=== PATIENT | female | born 1945 | race Caucasian/White ===

== ENCOUNTER 2018-09-27 19:59 | Observation (INO) | payer OTHER ==
[2018-09-27 20:52] LABS: Absolute Monocytes 0.6 K/uL (0.1-1.3); Absolute Neutrophil 5.1 K/uL (1.8-8.0); Basophils % 0.7 % (0-1.3); Eosinophils % 1.3 % (0-4.4); Lymphocytes % 25.4 % (15.3-44.8); Monocytes % 7.5 % (3.3-12.3); RBC Red Blood Cell Count 4.01 M/uL (3.86-4.86)
[2018-09-27 21:09] LABS: Protime INR 0.96
[2018-09-27 21:15] LABS: ALT/SGPT 20 U/L (12-78); AST/SGOT 15 U/L (15-37); Albumin 3.5 g/dL (3.4-5.0); Alkaline Phosphatase 96 U/L (45-117); BUN Blood Urea Nitrogen 23 mg/dL (7-18); Bicarbonate 31 mmol/L (21-32); Bilirubin Direct 0.1 mg/dL (0-0.2); Bilirubin Total 0.3 mg/dL (0.2-1.0); Glucose Level 104 mg/dL (74-106); Magnesium 2.2 mg/dL (1.8-2.4); NT PRO-BNP 64 pg/mL (<125); Potassium 3.5 mmol/L (3.5-5.1); Protein, Total 6.7 g/dL (6.4-8.2); Sodium Level 142 mmol/L (136-145); Troponin (Emerg Dept Use Only) < 0.02 ng/mL (0.0-0.045)
--- NOTE | 2018-09-27 21:55 | RAD REPORT ---
EXAM DESCRIPTION: RAD - Chest Single View - 09/27/2018 9:50 pm CLINICAL HISTORY: tingling right arm Chest pain. COMPARISON: CHEST PA AND LAT 2 VIEW dated 10/02/2013; CHEST SINGLE VIEW dated 03/06/2011; CHEST SINGLE VIEW dated 05/28/2010 FINDINGS: Portable technique limits examination quality. The lungs are grossly clear. The heart is normal in size. No displaced fractures. IMPRESSION: No acute intrathoracic process suspected.
--- NOTE | 2018-09-27 21:58 | ER ---
Nurse's Notes [facility] Name: Cynthia Mckenna Age: 73 yrs Sex: Female : 1945 Arrival Date: 09/27/2018 Time: 20:16 Bed 16 Private MD: Diagnosis: Chest pain, unspecified;Hypertensive heart disease Presentation: 09/27 20:20 Presenting complaint: EMS states: Pt complaining of tingling and pain to the left arm, ea pt reports pain was lingering even after an taking aspirin 325mg. Pt denied SOB, stated she felt weak all over. Transition of care: patient was not received from another setting of care. Onset of symptoms was September 27, 2018. Risk Assessment: Do you want to hurt yourself or someone else? Patient reports no desire to harm self or others. Initial Sepsis Screen: Does the patient meet any 2 criteria? No. Patient's initial sepsis screen is negative. Does the patient have a suspected source of infection? No. Patient's initial sepsis screen is negative. Care prior to arrival: IV to left forearm. 20:20 Method Of Arrival: EMS: [facility] ea 20:20 Acuity: ARIEL 3 ea Triage Assessment: 20:20 General: Appears in no apparent distress. Behavior is calm, cooperative, appropriate ea for age. Pain: Denies pain. EENT: No signs and/or symptoms were reported regarding the EENT system. Neuro: Level of Consciousness is awake, alert, obeys commands, Oriented to person, place, time, situation. Cardiovascular: Patient's skin is warm and dry. Respiratory: Airway is patent Respiratory effort is even, unlabored, Respiratory pattern is regular, symmetrical. GI: No signs and/or symptoms were reported involving the gastrointestinal system. : No signs and/or symptoms were reported regarding the genitourinary system. Derm: Skin is intact, Skin is pink, warm \T\ dry. Historical: - Allergies: 20:48 No Known Allergies; ea - Home Meds: 20:48 hydrochlorothiazide Oral [Active]; atorvastatin 20 mg oral tab 1 tab once daily ea [Active]; lisinopril 40 mg Oral tab 1 tab once daily [Active]; - PMHx: 20:49 Hypertension; Hyperlipidemia; ea - Immunization history:: Adult Immunizations up to date. - Social history:: Smoking status: Patient/guardian denies using tobacco. - Ebola Screening: : No symptoms or risks identified at this time. Screenin:41 Abuse screen: Denies threats or abuse. Nutritional screening: No deficits noted. ea Tuberculosis screening: No symptoms or risk factors identified. Fall Risk None identified. Assessment: 20:20 Reassessment: Pt taken to CT. ea 20:53 Reassessment: Pt taken to CT. ea 21:04 Reassessment: Patient and/or family updated on plan of care and expected duration. Pain ea level reassessed. Patient is alert, oriented x 3, equal unlabored respirations, skin warm/dry/pink. Pt returned from CT. 21:56 Reassessment: Patient and/or family updated on plan of care and expected duration. Pain ea level reassessed. Patient is alert, oriented x 3, equal unlabored respirations, skin warm/dry/pink. Dr. Quintanilla at bedside updating pt on plan of care. 22:50 Reassessment: Patient and/or family updated on plan of care and expected duration. Pain ea level reassessed. Patient is alert, oriented x 3, equal unlabored respirations, skin warm/dry/pink. Awaiting for room assignment. 23:47 Reassessment: Patient and/or family updated on plan of care and expected duration. Pain ea level reassessed. Patient is alert, oriented x 3, equal unlabored respirations, skin warm/dry/pink. Awaiting on room assignment. 02 00:36 Reassessment: Patient and/or family updated on plan of care and expected duration. Pain ea level reassessed. Patient is alert, oriented x 3, equal unlabored respirations, skin warm/dry/pink. Awaiting on room assignment. 01:00 Reassessment: Patient and/or family updated on plan of care and expected duration. Pain ea level reassessed. Patient is alert, oriented x 3, equal unlabored respirations, skin warm/dry/pink. 01:39 Reassessment: Report called to Gale LEIVA on second floor. ea 01:50 Reassessment: Patient and/or family updated on plan of care and expected duration. Pain ea level reassessed. Patient is alert, oriented x 3, equal unlabored respirations, skin warm/dry/pink. Pt admitted to second floor, pt taken via wheelchair tolerated well. No s/s of pain or discomfort noted at this time. Vital Signs: 09/27 20:25 BP 147 / 79; Pulse 66; Resp 18; Temp 97.8; Pulse Ox 97% on R/A; Weight 58.97 kg; Height ea 5 ft. 4 in. (162.56 cm); Pain 0/10; 21:04 BP 162 / 64; Pulse 61; Resp 18; Pulse Ox 98% on R/A; ea 22:05 BP 154 / 78; Pulse 64; Resp 18; Pulse Ox 97% ; ea 23:45 BP 159 / 73; Pulse 58; Resp 19; Pulse Ox 96% on R/A; ea 09/28 00:30 BP 148 / 78; Pulse 52; Resp 18; Pulse Ox 96% on R/A; ea 01:40 BP 126 / 64; Pulse 58; Resp 18; Temp 98; Pulse Ox 95% ; Pain 0/10; ea 09/27 20:25 Body Mass Index 22.31 (58.97 kg, 162.56 cm) ea NIH Stroke Scale Scores: 09/27 20:40 NIHSS Score: 0 cp ED Course: 20:16 Patient arrived in ED. bb 20:16 Arm band placed on right wrist. Patient placed in an exam room, on a stretcher, on ea pulse oximetry. 20:20 Maintain EMS IV. Dressing intact. Good blood return noted. Site clean \T\ dry. Gauge \T\ ea site: 20 G RFA. 20:21 Jude Anderson PA is PHCP. cp 20:21 Jude Freeman MD is Attending Physician. cp 20:[address] via stretcher. vm2 20:41 Sonya Benson, CALI is Primary Nurse. ea 20:46 Triage completed. ea 20:50 Patient has correct armband on for positive identification. Placed in gown. Bed in low ea position. Call light in reach. 21:04 CT Head Brain wo Cont In Process Unspecified. EDMS 21:51 XRAY Chest (1 view) In Process Unspecified. EDMS 21:56 Ulisses Breen MD is Hospitalizing Provider. cp 21:57 No provider procedures requiring assistance completed. ea 22:42 CT Aorta for Dissection In Process Unspecified. EDMS 09/28 01:37 Patient admitted, IV remains in place. ea Administered Medications: No medications were administered Outcome: 09/27 21:57 Decision to Hospitalize by Provider. cp 22:30 Instructed on the need for admit. eulogio 09/28 01:37 Admitted to Med/surg accompanied by tech, room 214, with chart, Report called to Gale krishnan RN Condition: stable 02:04 Patient left the ED. eulogio NIH Stroke Scale - NIH Stroke Score Date: 09/27/2018 Time: 20:40 Total Score = 0 1a. Level of Consciousness (LOC) - 0(Alert) 1b. Level of Consciousness (LOC) (Year \T\ Age) - 0(Both) 1c. LOC Commands (Open \T\ Closes Eyes/Box Toe Flanger Stitchdowns) - 0(Both) 2. Best Gaze (Lateral Gaze Paresis) - 0(Normal) 3. Visual Field Loss - 0(No visual loss) 4. Facial Palsy - 0(Normal) 5a. Left Arm: Motor (10-second hold) - 0(No drift) 5b. Right Arm: Motor (10-second hold) - 0(No drift) 6a. Left Leg: Motor (5-second hold - always test supine) - 0(No drift) 6b. Right Leg: Motor (5-second hold - always test supine) - 0(No drift) 7. Limb Ataxia (finger/nose \T\ heel/delacruz - test with eyes open) - 0(Absent) 8. Sensory Loss (pinprick arms/legs/face) - 0(Normal) 9. Best Language: Aphasia (description/naming/reading) - 0(No aphasia) 10. Dysarthria (speech clarity - read or repeat words) - 0(Normal) 11. Extinction and Inattention (visual/tactile/auditory/spatial/personal) - 0(No abnormality) Initials: cp Signatures: Dispatcher [employer] EDSarah Persaud RN RN bb Page, Corey, PA PA cp McGuire, Victoria vm2 Antunez, Elena, RN RN ea
--- NOTE | 2018-09-27 21:58 | EDPHYS ---
Physician Documentation [facility] Name: Cynthia Mckenna Age: 73 yrs Sex: Female : 1945 Arrival Date: 09/27/2018 Time: 20:16 Bed 16 Private MD: ED Physician Jude Freeman HPI: 09/27 20:30 This 73 yrs old Female presents to ER via Unassigned with complaints of cp tingling right arm. 20:30 The patient or guardian complains of tingling. The complaints affect the right arm. cp Context: The problem was sustained at home. Onset: The symptoms/episode began/occurred today, about 1800. Treatment prior to arrival includes: 325 mg aspirin. Historical: - Allergies: 20:48 No Known Allergies; ea - Home Meds: 20:48 hydrochlorothiazide Oral [Active]; atorvastatin 20 mg oral tab 1 tab once daily ea [Active]; lisinopril 40 mg Oral tab 1 tab once daily [Active]; - PMHx: 20:49 Hypertension; Hyperlipidemia; ea - Immunization history:: Adult Immunizations up to date. - Social history:: Smoking status: Patient/guardian denies using tobacco. - Ebola Screening: : No symptoms or risks identified at this time. ROS: 20:35 Constitutional: Negative for body aches, chills, fever, poor PO intake. cp 20:35 Eyes: Negative for injury, pain, redness, and discharge. cp 20:35 ENT: Negative for drainage from ear(s), ear pain, sore throat, difficulty swallowing, difficulty handling secretions. 20:35 Cardiovascular: Positive for chest pain, of the right side, Negative for edema, palpitations. 20:35 Respiratory: Negative for cough, shortness of breath, wheezing. 20:35 Abdomen/GI: Negative for abdominal pain, nausea, vomiting, and diarrhea, constipation, black/tarry stool, rectal bleeding. 20:35 Back: Negative for decreased range of motion. 20:35 : Negative for urinary symptoms. 20:35 MS/extremity: Positive for pain, of the right shoulder and right arm, Negative for injury or acute deformity, decreased range of motion, paresthesias. 20:35 Neuro: Positive for general weakness, tingling of right arm, Negative for altered mental status, headache, numbness. 20:35 All other systems are negative. Exam: 20:36 ECG was reviewed by the Attending Physician. cp 20:40 Constitutional: The patient appears in no acute distress, alert, awake, comfortable, cp non-diaphoretic, non-toxic, well developed, well nourished. 20:40 Head/Face: Normocephalic, atraumatic. Eyes: Pupils equal round and reactive to light, cp extra-ocular motions intact. Lids and lashes normal. Conjunctiva and sclera are non-icteric and not injected. Cornea within normal limits. Periorbital areas with no swelling, redness, or edema. ENT: Nares patent. No nasal discharge, no septal abnormalities noted. Tympanic membranes are normal and external auditory canals are clear. Oropharynx with no redness, swelling, or masses, exudates, or evidence of obstruction, uvula midline. Mucous membranes moist. Neck: Trachea midline, no thyromegaly or masses palpated, and no cervical lymphadenopathy. Supple, full range of motion without nuchal rigidity, or vertebral point tenderness. No Meningismus. Chest/axilla: Normal chest wall appearance and motion. Nontender with no deformity. No lesions are appreciated. 20:40 Cardiovascular: Rate: normal, Rhythm: regular, Pulses: Pulses are 2+ in right radial artery and left radial artery. Heart sounds: murmur, not appreciated, rub, not appreciated, gallop, not appreciated, Edema: is not appreciated, JVD: is not appreciated. 20:40 Respiratory: the patient does not display signs of respiratory distress, Respirations: normal, no use of accessory muscles, no retractions, no splinting, no tachypnea, labored breathing, is not present, Breath sounds: are clear throughout, no decreased breath sounds, no stridor, no wheezing. 20:40 Abdomen/GI: Inspection: abdomen appears normal, Bowel sounds: active, all quadrants, Palpation: abdomen is soft and non-tender, in all quadrants. 20:40 Skin: cellulitis, is not appreciated, no rash present. 20:40 Neuro: Orientation: to person, place \T\ time. Mentation: is normal, Cerebellar function: is grossly normal, Motor: moves all fours, strength is normal, Sensation: no obvious gross deficits. Vital Signs: 20:25 BP 147 / 79; Pulse 66; Resp 18; Temp 97.8; Pulse Ox 97% on R/A; Weight 58.97 kg; Height ea 5 ft. 4 in. (162.56 cm); Pain 0/10; 21:04 BP 162 / 64; Pulse 61; Resp 18; Pulse Ox 98% on R/A; ea 22:05 BP 154 / 78; Pulse 64; Resp 18; Pulse Ox 97% ; ea 23:45 BP 159 / 73; Pulse 58; Resp 19; Pulse Ox 96% on R/A; ea 09/28 00:30 BP 148 / 78; Pulse 52; Resp 18; Pulse Ox 96% on R/A; ea 01:40 BP 126 / 64; Pulse 58; Resp 18; Temp 98; Pulse Ox 95% ; Pain 0/10; ea 09/27 20:25 Body Mass Index 22.31 (58.97 kg, 162.56 cm) ea NIH Stroke Scale Scores: 09/27 20:40 NIHSS Score: 0 cp MDM: 20:23 Patient medically screened. cp 21:00 Differential diagnosis: acute MO, angina, TIA, CVA, aortic dissection. 21:35 Data reviewed: vital signs, nurses notes, lab test result(s), EKG, radiologic studies, cp plain films. 21:35 Test interpretation: by ED physician or midlevel provider: ECG, plain radiologic cp studies. ED course: chest xray negative for infiltrates. 21:45 Physician consultation: Ulisses Breen MD was called at 21:30, was contacted at 21:30, regarding admission, to the telemetry unit. patient's condition, and will see patient in ED, shortly. 09/27 20:21 Order name: Basic Metabolic Panel; Complete Time: 21:24 cp 09/27 21:24 Interpretation: Normal except: BUN 23; GFR 72. cp 09/27 20:21 Order name: CBC with Diff; Complete Time: 21:13 cp 09/27 21:13 Interpretation: Normal except: PLT 140. cp 09/27 20:21 Order name: LFT's; Complete Time: 21:24 cp 09/27 20:21 Order name: Magnesium; Complete Time: 21:24 cp 09/27 20:21 Order name: NT PRO-BNP; Complete Time: 21:24 cp 09/27 20:21 Order name: PT-INR; Complete Time: 21:13 cp 09/27 20:21 Order name: Troponin (emerg Dept Use Only); Complete Time: 21:24 09/27 21:24 Interpretation: Reviewed. 09/27 20:21 Order name: XRAY Chest (1 view) 09/27 20:21 Order name: EKG; Complete Time: 20:22 cp 09/27 20:21 Order name: Cardiac monitoring; Complete Time: 21:00 09/27 20:21 Order name: EKG - Nurse/Tech; Complete Time: 21:00 09/27 20:21 Order name: IV Saline Lock; Complete Time: 21:00 cp 09/27 20:22 Order name: CT Head Brain wo Cont 09/27 22:08 Order name: CT Aorta for Dissection 09/27 20:21 Order name: Labs collected and sent; Complete Time: 21:00 09/27 20:21 Order name: O2 Per Protocol; Complete Time: 21:00 09/27 20:21 Order name: O2 Sat Monitoring; Complete Time: 21:00 EC:36 Rate is 69 beats/min. Rhythm is regular. VT interval is normal. QRS interval is normal. cp QT interval is normal. Interpreted by me. Reviewed by me. Administered Medications: No medications were administered Disposition: 09/28 07:57 Co-signature as Attending Physician, Jude Freeman MD I agree with the assessment and veronica plan of care. Disposition: 09/27/18 21:57 Hospitalization ordered by Ulisses Breen for Observation. Preliminary diagnosis are Chest pain, unspecified, Hypertensive heart disease. - Bed requested for Telemetry/MedSurg (observation). - Status is Observation. ea - Condition is Stable. - Problem is new. - Symptoms have improved. UTI on Admission? No NIH Stroke Scale - NIH Stroke Score Date: 09/27/2018 Time: 20:40 Total Score = 0 1a. Level of Consciousness (LOC) - 0(Alert) 1b. Level of Consciousness (LOC) (Year \T\ Age) - 0(Both) 1c. LOC Commands (Open \T\ Closes Eyes/Geodetic Survey Director) - 0(Both) 2. Best Gaze (Lateral Gaze Paresis) - 0(Normal) 3. Visual Field Loss - 0(No visual loss) 4. Facial Palsy - 0(Normal) 5a. Left Arm: Motor (10-second hold) - 0(No drift) 5b. Right Arm: Motor (10-second hold) - 0(No drift) 6a. Left Leg: Motor (5-second hold - always test supine) - 0(No drift) 6b. Right Leg: Motor (5-second hold - always test supine) - 0(No drift) 7. Limb Ataxia (finger/nose \T\ heel/delacruz - test with eyes open) - 0(Absent) 8. Sensory Loss (pinprick arms/legs/face) - 0(Normal) 9. Best Language: Aphasia (description/naming/reading) - 0(No aphasia) 10. Dysarthria (speech clarity - read or repeat words) - 0(Normal) 11. Extinction and Inattention (visual/tactile/auditory/spatial/personal) - 0(No abnormality) Initials: cp Signatures: Dispatcher [employer] EDJude Pisano MD MD cha Page, Corey, PA PA cp Garcia, Cindy, Sonya Hall RN, RN RN ea Corrections: (The following items were deleted from the chart) 01:09/27 21:57 Hospitalization Ordered by Ulisses Breen MD for Observation. cg Preliminary diagnosis is Chest pain, unspecified; Hypertensive heart disease. Bed requested for Telemetry/MedSurg (observation). Status is Observation. Condition is Stable. Problem is new. Symptoms have improved. UTI on Admission? No. cp 09/28 02:04 01:20 09/27/2018 21:57 Hospitalization Ordered by Ulisses Breen MD for ea Observation. Preliminary diagnosis is Chest pain, unspecified; Hypertensive heart disease. Bed requested for Telemetry/MedSurg (observation). Status is Observation. Condition is Stable. Problem is new. Symptoms have improved. UTI on Admission? No. cg
[2018-09-28 03:31] LABS: HDL Cholesterol 60 mg/dL (40-60); LDL Cholesterol, Calculated 59 (<130); Troponin I < 0.02 ng/mL (0.0-0.045)
--- NOTE | 2018-09-28 05:18 | P.HP ---
Certification for Inpatient Patient admitted to: Observation With expected LOS: <2 Midnights Practitioner: I am a practitioner with admitting privileges, knowledge of patient current condition, hospital course, and medical plan of care. Services: Services provided to patient in accordance with Admission requirements found in Title 42 Section 412.3 of the Code of Federal Regulations Patient History Date of Service: 09/28/18 Reason for admission: atypical chest pain History of Present Illness: Ms Mckenna is a 73 years old woman with history of hyperlipidemia and hypertension who came to ED complaining of sudden onset of right shoulder. The pain described as pressure like, associated with tingling in her right arm. The pain was not triggered by shoulder movement, or reproducible with palpation. She denied SOB, diaphoresis, nausea or vomiting, but has been dizzy. Her symptoms last for 1 hour, she has never had this pain before. Intensity of the pain was 8/10. Currently asymptomatic. Initial trop I negative, EKG sinus rhythm without ST-T abnormalities. CT dissection negative. Allergies No Known Allergies Allergy (Verified 09/28/18 02:07) Home medications list reviewed: Yes Home Medications: Aspirin [Aspir-Low] 1 tab PO DAILY 09/28/18 Atorvastatin Calcium 1 tab PO BEDTIME 09/28/18 Diclofenac Sodium 1 tab PO PRN PRN 09/28/18 Lisinopril 1 tab PO DAILY 09/28/18 cloNIDine HCl [Clonidine HCl] 1 tab PO SEECOM PRN 09/28/18 hydroCHLOROthiazide [Hydrochlorothiazide*] 1 cap PO DAILY 09/28/18 - Past Medical/Surgical History Has patient received pneumonia vaccine in the past: Yes Diabetic: No -: HTN -: Hyperlipidemia -: Bursitis - Family History Family History: Reviewed- Non-Contributory - Social History Smoking Status: Never smoker Alcohol use: No CD- Drugs: No Caffeine use: Yes Place of Residence: Home Review of Systems 10-point ROS is otherwise unremarkable Physical Examination - Vital Signs Temperature: 98 F Blood Pressure: 126/64 Pulse: 58 Respirations: 18 - Physical Exam General: Alert, In no apparent distress HEENT: Atraumatic, PERRLA, Mucous membr. moist/pink, EOMI, Sclerae nonicteric Neck: Supple, 2+ carotid pulse no bruit, No LAD, Without JVD or thyroid abnormality Respiratory: Clear to auscultation bilaterally, Normal air movement Cardiovascular: Regular rate/rhythm, Normal S1 S2 Gastrointestinal: Normal bowel sounds, No tenderness Musculoskeletal: No tenderness Integumentary: No rashes Neurological: Normal gait, Normal speech, Normal strength at 5/5 x4 extr, Normal tone, Normal affect Lymphatics: No axilla or inguinal lymphadenopathy - Studies Laboratory Data (last 24 hrs) 09/27/18 20:35: PT 11.4, INR 0.96 09/27/18 20:35: WBC 7.8, Hgb 12.3, Hct 36.0, Plt Count 140 L 09/27/18 20:35: Sodium 142, Potassium 3.5, BUN 23 H, Creatinine 0.78, Glucose 104, Magnesium 2.2, Total Bilirubin 0.3, AST 15, ALT 20, Alkaline Phosphatase 96 Assessment and Plan - Problems (Diagnosis) (1) Atypical chest pain Current Visit: Yes Status: Acute (2) HTN (hypertension) Current Visit: Yes Status: Acute Qualifiers: Hypertension type: essential hypertension Qualified Code(s): I10 - Essential (primary) hypertension (3) Dyslipidemia Current Visit: Yes Status: Acute - Plan Will admit the patient for cardiac work up. At the moment EKG without acute changes, normal trop I, order ECHO, consult cardiology. - Advance Directives Does patient have a Living Will: No Does patient have a Durable POA for Healthcare: No - Code Status/Comfort Care Code Status Assessed: Yes Code Status: Full Code
--- NOTE | 2018-09-28 07:12 | EKG ---
Test Date: 2018-09-28 Test Time: 03:19:21 Belly Roller: RT Morales MEASUREMENT RESULTS: Intervals: Rate: 57 SC: 142 QRSD: 82 QT: 438 QTc: 426 [place]: P: 33 SC: 142 QRS: -9 T: 41 INTERPRETIVE STATEMENTS: Sinus bradycardia Minimal voltage criteria for LVH, may be normal variant Nonspecific T wave abnormality Abnormal ECG Compared to ECG 09/27/2018 20:23:33 T-wave abnormality now present Sinus rhythm no longer present Sinus arrhythmia no longer present Electronically Signed On 09-28-18 07:12:12 CDT by Rad Alonso
--- NOTE | 2018-09-28 07:13 | EKG ---
Test Date: 2018-09-27 Test Time: 20:23:33 Stock Drier Tender: BHARATI MEASUREMENT RESULTS: Intervals: Rate: 69 UT: 132 QRSD: 90 QT: 398 QTc: 426 [place]: P: 15 UT: 132 QRS: -20 T: 16 INTERPRETIVE STATEMENTS: Normal sinus rhythm with sinus arrhythmia Moderate voltage criteria for LVH, may be normal variant Borderline ECG No previous ECG available for comparison Electronically Signed On 09-28-18 07:12:20 CDT by Rad Alonso
[2018-09-28] MEDS ORDERED: cloNIDine HCl 0.1 MG TAB PO PRN (08:54)
[2018-09-28] MEDS ORDERED: ASPIRIN EC 81 MG TAB PO SCH (09:00)
[2018-09-28] MEDS ORDERED: hydroCHLOROthiazide 12.5 MG CAP PO SCH (09:00)
[2018-09-28] MEDS ORDERED: LISINOPRIL 20 MG TAB PO SCH (09:00)
[2018-09-28] MEDS ORDERED: ENOXAPARIN 40 MG/0.4 ML SQ SCH (09:00)
--- NOTE | 2018-09-28 09:35 | RAD REPORT ---
EXAM DESCRIPTION: CT Chest With Intravenous Contrast CT Abdomen and Pelvis With Intravenous Contrast CLINICAL HISTORY: The patient is 73 years old and is Female; CHEST PAIN TECHNIQUE: Axial computed tomography images of the chest, abdomen and pelvis with intravenous contra st during the arterial phase of enhancement. Sagittal and coronal reformatted images were created a nd reviewed. This CT exam was performed using one or more of the following dose reduction technique s: automated exposure control, adjustment of the mA and/or kV according to patient size, and/or use of iterative reconstruction technique. COMPARISON: None. FINDINGS: VASCULATURE: AORTA: Mild calcification of the aortic arch and descending aorta. Mild tortuosity of the distal d escending and abdominal aorta. No aortic aneurysm. No dissection. PULMONARY ARTERIES: Unremarkable as visualized. No pulmonary embolism is identified. GREAT VESSELS OF AORTIC ARCH: No acute findings. No dissection. No arterial occlusion or signi ficant stenosis. CELIAC TRUNK AND MESENTERIC ARTERIES: No acute findings. No occlusion or significant stenosis. RENAL ARTERIES: No acute findings. No occlusion or significant stenosis. ILIAC ARTERIES: No acute findings. No occlusion or significant stenosis. CHEST: LUNGS: No focal consolidation. Linear density within both lung bases suggestive of scarring. PLEURAL SPACE: No pleural effusion or pneumothorax. HEART: Unremarkable. No cardiomegaly. No significant pericardial effusion. THYROID: Subcentimeter left thyroid hypodensity. ABDOMEN: LIVER: Subcentimeter hepatic hypodensities, likely cyst. GALLBLADDER AND BILE DUCTS: Contracted gallbladder. No calcified stones. No ductal dilation. PANCREAS: Unremarkable. No ductal dilation. No mass. SPLEEN: Unremarkable. No splenomegaly. ADRENALS: Unremarkable. No mass. KIDNEYS AND URETERS: Unremarkable. No hydronephrosis. No solid mass. STOMACH AND BOWEL: Mild colonic diverticulosis without CT evidence of acute demonstrated. No obstruction. No mucosal thickening. PELVIS: APPENDIX: The appendix is seen and is within normal limits. BLADDER: Unremarkable. No mass. REPRODUCTIVE: Prior hysterectomy. 2.7 cm right ovarian cyst. CHEST, ABDOMEN and PELVIS: INTRAPERITONEAL SPACE: Unremarkable. No significant fluid collection. No free air. BONES/JOINTS: Diffuse osteopenia and mild multilevel changes. Mild vacuum phenomenon at L5-S1. No acute fracture. No dislocation. SOFT TISSUES: Small fat-containing periumbilical hernia. LYMPH NODES: Unremarkable. No enlarged lymph nodes. IMPRESSION: 1. No aortic dissection or aneurysm. 2. Bibasilar atelectasis and/or scarring. No focal consolidation, pleural effusion or pneumothorax. 3. Mild colonic diverticulosis without CT evidence of acute demonstrated. 4. Prior hysterectomy. 2.7 cm right ovarian cyst. Recommend prompt follow-up with pelvic US. Refere nce: J Am Bailee Radiol 2013;[id number]. 5. Diffuse osteopenia and mild multilevel changes. Mild vacuum phenomenon at L5-S1. Electronically signed by: Todd Velasquez DO 09/27/2018 10:58 PM CDT Due to temporary technical issues with the PACS/Fluency reporting system, reports are being signed by the in house radiologist as a courtesy to ensure prompt reporting. The interpreting radiologist is f ully responsible for the content of the report.
--- NOTE | 2018-09-28 10:04 | RAD REPORT ---
EXAM DESCRIPTION: CLAY CLAROS [id number] - Head Brain Wo Cont EXAM: CT Head Without Intravenous Contrast CLINICAL HISTORY: The patient is 73 years old and is Female; tingling right arm TECHNIQUE: Axial computed tomography images of the head/brain without intravenous contrast. Sagitt al and coronal reformatted images were created and reviewed. This CT exam was performed using one o r more of the following dose reduction techniques: automated exposure control, adjustment of the mA and/or kV according to patient size, and/or use of iterative reconstruction technique. COMPARISON: No relevant prior studies available. FINDINGS: Brain: Periventricular and deep white matter hypodensities, most commonly due to nonspec [facility] white matter chronic microvascular ischemia. Mild cerebral atrophy. No hemorrhage. Ventricles: Unremarkable. No ventriculomegaly. Bones/joints: Unremarkable. No acute fracture. Soft tissues: Unremarkable. Vasculature: Vascular calcifications. Sinuses: Unremarkable as visualized. No acute sinusitis. Mastoid air cells: Unremarkable as visualized. No mastoid effusion. IMPRESSION: No acute intracranial findings. Mild cerebral atrophy and nonspecific chronic microvascu lar ischemic changes. Electronically signed by: Pérez Mitchell MD 09/27/2018 9:14 PM CDT Due to temporary technical issues with the PACS/Fluency reporting system, reports are being signed by the in house radiologist as a courtesy to ensure prompt reporting. The interpreting radiologist is f ully responsible for the content of the report.
--- NOTE | 2018-09-28 15:22 | CON ---
Date of Consultation: 09/28/[address] Cancino's service on 09/28/2018. I saw the patient on 09/28/2018. Reason For Consultation: Arm numbness. History Of Present Illness: Ms. Mckenna is a 73-year-old woman. She has a history of hypertension an d dyslipidemia. She denied any chest pain to me. She states she had an episode of right shoulder, a rm and hours, it has gone away now. Denied PND, orthopnea, pedal edema, palpitations, or syncope. Denies nausea, vomiting, or diaphoresis. Her pain was positional. Allergies: NONE. Review of Systems: Negative. Social History: Negative. Family History: Negative. Medications: Include aspirin, Lipitor, lisinopril, hydrochlorothiazide, and clonidine. Physical Examination: Vital Signs: Stable, afebrile. HEENT: Negative. Neck: Supple with no bruit, lymphadenopathy, JVD, or thyromegaly. Chest: Clear to auscultation and percussion. Cardiac: Exam revealed a regular rhythm and rate. No murmurs, gallops, or rubs. Abdomen: Benign. Extremities: Revealed no clubbing, cyanosis, or edema. Diagnostic Data: All within normal limits. Ms. Mckenna has had carotid Doppler, abdominal aortic ult rasound, thoracic aortic ultrasound and stress test in the past, all of which has been negative. She sees a physician in . There is an echocardiogram that is pending today. Impression And Plan: Arm pain with numbness that I really think is related to cervical radiculopathy . I think down the road an MRI of the cervical spine may be reasonable. She has already had a signi ficant cardiac and vascular workup in the past and is negative. Her blood pressure and dyslipidemia are well controlled on present therapy. I think an echocardiogram is reasonable. However, if this i s normal she can definitely go home and follow up with her primary care physician regarding her other issues. I do not think repeating a carotid Doppler is necessary at this point. MARIO/REBECA Voice ID: [id number] Report ID: [id number]
[2018-09-28] MEDS ORDERED: ATORVASTATIN 20 MG TAB PO SCH (21:00)
--- NOTE | 2018-09-29 05:17 | DS ---
Date of Discharge: 09/28/2018 [place]: Dr. Alonso with Cardiology. Procedures: None. Discharge Diagnoses: 1.Atypical chest pain. 2.Essential hypertension. 3.Dyslipidemia. Hospital Course: The patient is a 73-year-old female with past medical history of hyperlipidemia and hypertension, comes in with sudden onset of right shoulder pain. The patient was admitted to the [facility] for further workup. Imaging studies including CT scan aortic dissection was negative, did [place] w some diverticulosis as well as right ovarian cyst. The patient was recommended to have a followup pelvic ultrasound within the next couple of weeks. CT scan of the head was also done, which showed n o acute intracranial findings, mild cerebral atrophy, and nonspecific chronic microvascular ischemic changes. Her EKG showed normal sinus rhythm. Her cardiac enzymes remain negative. Chest x-ray was also clear. The patient's symptoms improved. Her ACS was ruled out. Her lipid panel was normal. T he patient was seen by Dr. Alonso, who recommended no further workup and for her to followup with lorrie elder as an outpatient. The patient's pain resolved. She did well over the course of the hospital stay. She was then cleared for discharge and was sent home in a stable condition. Activity: As tolerated. Medications: As per medication reconciliation list. Discharge Instructions: The patient recommended to follow up with her primary care physician in 2-3 days, follow up with adhesion tester, Dr. Alonso, in 2 weeks; follow up with Orthopedics as scheduled. The patient will need MRI of the cervical spine to rule out any sort of her cervical radiculopathy, pelvic ultrasound in 1-2 weeks to evaluate right ovarian cyst. Return to ER for worsening condition. Physical Examination: General: Awake, alert, oriented, no acute distress, elderly female. CV: S1, S2. No murmurs. Respiratory: Moving air well bilaterally. Abdomen: Soft, nontender, nondistended. Positive bowel sounds. Extremities: No clubbing, cyanosis, or edema. Neurologic: Nonfocal. No numbness or tingling. Strength is 5/5 bilateral upper and lower extremiti es. Musculoskeletal: No tenderness on the right shoulder. Code Status: Full. SA/MODL Voice ID: [id number] Report ID: [id number]
== END 2018-09-28 11:55 | disposition home or self-care (01) ==
LOC: ER 19:59 → ERHOLD 09-28 01:06 → 2ND 09-28 01:39
PROVIDERS: ADMIT Internal Medicine; ATTEND Internal Medicine
DX: R07.89 Other chest pain (principal); I10 Essential (primary) hypertension; E78.5 Hyperlipidemia, unspecified; Z79.82 Long term (current) use of aspirin
CPT/HCPCS: 93005 ×2; 85025; 80048; 36415; 83735; 85610; 80061; 80076; 84484 ×3; 83880; 70450; 71275; 74175; 71045; 99285; Q9967; J1650; G0378 ×2